=== PATIENT | male | born 1990 | race Caucasian/White ===

== ENCOUNTER 2017-06-04 01:22 | Emergency (ER) | payer OTHER ==
[2017-06-04 01:28] VITALS: BP 111/58; PULSE 101; RESP 18; TEMP 98.2; O2SAT 97
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
[2017-06-04] MEDS ORDERED: ACETAMINOPHEN/HYDROcodone 325 MG/5 MG TAB PO ONE (03:00)
[2017-06-04] MEDS ORDERED: IBUP-232 PO (03:00)
[2017-06-04] MEDS ORDERED: NORC5TAB PO (03:00)
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
== END 2017-06-04 05:59 | disposition home or self-care (01) ==
LOC: NEPE 01:22
DX: S92.351A Displaced fracture of fifth metatarsal bone, right foot, initial encounter for closed fracture (principal); S02.2XXA Fracture of nasal bones, initial encounter for closed fracture; Y04.2XXA Assault by strike against or bumped into by another person, initial encounter; Y93.9 Activity, unspecified; Y92.9 Unspecified place or not applicable; F17.210 Nicotine dependence, cigarettes, uncomplicated; G47.00 Insomnia, unspecified
CPT/HCPCS: 29505; 70450; 70486; 73600; 73620; 99285; E0113